=== PATIENT | male | born 1970 | race African-American/Black ===

== ENCOUNTER 2016-09-30 10:53 | Emergency (ER) | payer MEDICAID ==
[~2016-09-30] VITALS: Ht 182.9 cm; Wt 132.0 kg
[~2016-09-30 10:53] MED LIST: TRAMADOL
[2016-09-30] MEDS ORDERED: UNKNOWN BP MEDS (11:01)
[2016-09-30] MEDS ORDERED: NICO1PAT16 TD (11:01)
[2016-09-30] MEDS ORDERED: TRAMADOL 50MG TABLET PO ONE (11:15)
[2016-09-30 11:34] LABS: BASOPHILS % 0.9 % (0.0-2.0); DIFFERENTIAL COMMENT 0; EOSINOPHILS % 3.8 % (0.0-5.0); HEMATOCRIT. 45.3 % (42.0-52.0); HEMOGLOBIN. 15.1 g/dL (14.0-18.0); LYMPHOCYTES % 45.8 % (20.0-50.0); MEAN CORPUSCULAR HEMOGLOBIN 27.7 pg (28.0-32.0); MEAN CORPUSCULAR HGB CONC 33.3 g/dL (31.0-37.0); MEAN CORPUSCULAR VOLUME 83.3 fL (80.0-94.0); MEAN PLATELET VOLUME 8.5 fl (7.4-10.4); MONOCYTES % 7.5 % (2.0-8.0); PLATELET 267 x1000/uL (130-400); RED BLOOD CELL COUNT 5.45 mill/uL (4.7-6.1); RED CELL DISTRIBUTION WIDTH 15.2 % (11.6-14.6); WHITE BLOOD COUNT 8.4 x1000/uL (4.5-11.0)
[2016-09-30 11:42] LABS: PARTIAL THROMBOPLASTIN TIME 28.6 sec (24.0-34.0); PROTHROMBIN TIME 10.2 sec
[2016-09-30 11:52] LABS: ALANINE AMINOTRANSFERASE 82 IU/L (13-61); ALBUMIN 4.1 g/dL (3.4-5.0); ANION GAP 13; CARBON DIOXIDE 26 mEq/L (21-32); CHLORIDE 104 mEq/L (98-107); INDEX HEMOLYSI 2 (1-3); INDEX ICTERIC 1 (1-4); INDEX LIPEMIC 1 (1-3); LIPASE 132 IU/L (73-393); NT PRO B-TYPE NATRIURETIC PEP 9 pg/mL (5-125); TROPONIN I < 0.02 ng/mL (0.00-0.04); UREA NITROGEN BLOOD 11 mg/dL (7-21); eGFR > 60 mL/min (>60)
[2016-09-30 11:59] VITALS: BP 145/88
== END 2016-09-30 13:05 | disposition home or self-care (01) ==
LOC: ER 11:36
DX: M94.0 Chondrocostal junction syndrome [Tietze] (principal); I10 Essential (primary) hypertension; Z79.899 Other long term (current) drug therapy; F17.200 Nicotine dependence, unspecified, uncomplicated
CPT/HCPCS: 36415; 71020; 80053; 83690; 83880; 84484; 85025; 85610; 85730; 93005; 99285; Z7610

== ENCOUNTER 2016-12-11 15:55 | Emergency (ER) | payer MEDICAID ==
[~2016-12-11] VITALS: Ht 182.9 cm; Wt 132.0 kg
[~2016-12-11 15:55] MED LIST changes: +NICO1PAT16 TD; +UNKNOWN BP MEDS
[2016-12-11 16:19] VITALS: BP 157/103
== END 2016-12-11 22:30 | disposition left against medical advice (07) ==
LOC: ER 22:06
DX: Z53.21 Procedure and treatment not carried out due to patient leaving prior to being seen by health care provider (principal)

== ENCOUNTER 2019-08-21 15:16 | Emergency (ER) | payer MEDICAID ==
[~2019-08-21] VITALS: Ht 182.9 cm; Wt 159.0 kg
[2019-08-21] MEDS ORDERED: KETOROLAC 30MG/ML VIAL IV STA (17:09)
[2019-08-21 17:29] LABS: CLARITY URINE CLEAR (CLEAR); COLOR URINE YELLOW (YELLOW); KETONES URINE NEGATIVE (NEGATIVE); LEUKOCYTE ESTERASE URINE NEGATIVE (NEGATIVE); NITRITE URINE NEGATIVE (NEGATIVE); OCCULT BLOOD URINE NEGATIVE (NEGATIVE); PH URINE 5.5 (4.5-8.0); PROTEIN URINE 2+ (NEGATIVE); SPECIFIC GRAVITY URINE 1.022 (1.005-1.030)
[2019-08-21 17:30] LABS: BASOPHILS % 0.8 % (0.0-2.0); CHLORIDE 105 mEq/L (98-107); EOSINOPHILS % 5.6 % (0.0-5.0); HEMATOCRIT. 42.2 % (42.0-52.0); HEMOGLOBIN. 14.1 g/dL (14.0-18.0); LYMPHOCYTES % 35.2 % (20.0-50.0); MEAN CORPUSCULAR HEMOGLOBIN 27.6 pg (28.0-32.0); MEAN CORPUSCULAR VOLUME 82.9 fL (80.0-94.0); MEAN PLATELET VOLUME 8.8 fl (7.4-10.4); MONOCYTES % 8.7 % (2.0-8.0); NEUTROPHILS % 49.7 % (40.0-76.0); PLATELET 229 x1000/uL (130-400); RED BLOOD CELL COUNT 5.09 mill/uL (4.7-6.1); RED CELL DISTRIBUTION WIDTH 16.1 % (11.6-14.6)
[2019-08-21 18:52] VITALS: BP 157/86
== END 2019-08-21 19:12 | disposition home or self-care (01) ==
LOC: ER 15:16
DX: R10.9 Unspecified abdominal pain (principal); R60.9 Edema, unspecified; I10 Essential (primary) hypertension; Z98.890 Other specified postprocedural states
CPT/HCPCS: 36415; 71045; 80053; 81003; 83880; 84484; 85025; 93005; 96374; 99285; J1885